=== PATIENT | male | born 1965 | race Caucasian/White ===

== ENCOUNTER 2023-01-14 11:02 | Outpatient (CLI) | payer OTHER, SELFPAY ==
--- NOTE | 2023-01-14 11:18 | XR_ITS ---
WS: [id number] EXAMINATION: XR knee LT 3V* [id number] REASON FOR EXAM: trauma Jul 2022 w continued pain COMPARISON: None available. ORDER DATE: 01/14/2023 11:25 AM FINDINGS: There is no sign of any acute osseous or articular abnormality. There are no specific soft tissue abn ormalities. XR/XR knee LT 3V* [id number] IMPRESSION: No acute abnormality
== END 2023-01-14 11:03 | disposition home or self-care (01) ==
LOC: RAD 11:05
PROVIDERS: PCP Family Medicine; Visit Provider Family Medicine
DX: S86.912A Strain of unspecified muscle(s) and tendon(s) at lower leg level, left leg, initial encounter (principal); X58.XXXA Exposure to other specified factors, initial encounter
CPT/HCPCS: 73562